=== PATIENT | male | born 1975 | race Caucasian/White ===

== ENCOUNTER 2016-08-08 21:16 | Emergency (ER) | payer SELFPAY ==
[2016-08-08 23:30] LABS: BASOPHIL % 0.4 % (0-2); PLATELET COUNT 223 x10^3mcL (130-400); RED CELL DISTRIBUTION WIDTH 12.5 % (11.5-14.5)
[2016-08-08 23:35] LABS: CALCIUM 8.9 mg/dL (8.5-10.1); CARBON DIOXIDE 26.8 mmol/L (21-32); CHLORIDE SERUM 103 mmol/L (98-107); CREATININE SERUM 0.9 mg/dL (0.7-1.3); GFR1 > 60 mL/min; GLUCOSE SERUM 89 mg/dL (74-106); POTASSIUM SERUM 3.8 mmol/L (3.5-5.1); SODIUM SERUM 139 mmol/L (136-145)
[2016-08-09 00:02] LABS: ALKALINE PHOSPHATASE 68 U/L (46-116); ALT/SGPT 30 U/L (16-63); AST/SGOT 31 U/L (15-37); BILIRUBIN TOTAL 1.33 mg/dL (0.20-1.00); TOTAL PROTEIN, SERUM 7.7 g/dL (6.4-8.2)
[2016-08-09 02:43] LABS: CHOLESTEROL/HDL RATIO 3.7
[2016-08-09 02:53] LABS: FREE T4 0.83 ng/dL (0.76-1.46); FREE THYROXINE INDEX 1.8 ug/dL (1.4-4.5); T4(THYROXINE) 5.6 ug/dL (4.7-13.3)
[2016-08-09 12:15] VITALS: BP 119/76
== END 2016-08-09 12:29 | disposition home or self-care (01) ==
LOC: ED 21:16
PROVIDERS: Emergency Medicine; Family Medicine
DX: R07.89 Other chest pain (principal); R11.10 Vomiting, unspecified; I10 Essential (primary) hypertension; R61 Generalized hyperhidrosis
CPT/HCPCS: 83880; 84439; J7030